=== PATIENT | female | born 1970 | race Caucasian/White ===

== ENCOUNTER → 2017-06-29 10:44 | Emergency (ER) | payer MEDICARE, BC ==
[2017-06-29 10:53] VITALS: BP 111/80
--- NOTE | 2017-06-29 12:23 | ED ---
Kunal Schroeder Nilda, scribed for Lina Boyer MD on 06/29/17 at 1200 . Complex/Multi-Sys Presentation - HPI Summary HPI Summary: This patient is a 47 year old F BIBA to [facility] with a chief complaint of bleeding from dialysis graft for the past two hours. Pt has been on dialysis for 9 years and had dialysis today. Pt states she had applied pressure to area for two hours and bleeding is starting to slow, but has not completely resolved. Symptoms aggravated by nothing. Pt states she is on Coumadin for a blood disorder and denies PMHx of PE. Pt notes she has Hx of "clotting issues." She states she was a recipient for kidney transplant years ago but it was unsuccessful. - History Of Current Complaint Chief Complaint: EDGeneral Time Seen by Provider: 06/29/17 11:00 Hx Obtained From: Patient Onset/Duration: Sudden Onset, Lasting Hours, Still Present Timing: Constant Severity Initially: Mild Aggravating Factor(s): nothing Alleviating Factor(s): compression Associated Signs And Symptoms: Positive: Other - bleeding from dialysis graft - Allergies/Home Medications Allergies/Adverse Reactions: Allergies Allergy/AdvReac Type Severity Reaction Status Date / Time Amoxicillin [From Augmentin] Allergy Intermediate Vomiting Verified 06/09/16 12: 19 Ceftriaxone [From Rocephin] Allergy Intermediate Vomiting Verified 06/09/16 12: 19 Clavulanic Acid Allergy Intermediate Vomiting Verified 06/09/16 12:19 [From Augmentin] Adhesive Tape [Plastic Tape] Allergy Mild Rash And Verified 06/09/16 12:19 Itching Iodinated Contrast Media Allergy Mild Rash Verified 06/09/16 12:19 [CONTRAST DYE] PMH/Surg Hx/FS Hx/Imm Hx Endocrine/Hematology History: Reports: Hx Anticoagulant Therapy - off coumadin x 2 weeks, Hx Anemia - dialysis pt Denies: Hx Blood Disorders, Hx Blood Transfusions, Hx Bone Marrow Disease, Hx Diabetes, Hx Systemic Lupus Erythematosus, Hx Sickle Cell Disease, Hx Thyroid Disease, Hx Unexplained Bleeding, Other Endocrine/Hematological Disorders Cardiovascular History: Denies: Hx Aneurysm, Hx Angina, Hx Angioplasty, Hx Auto Implanted Cardiovert Defib, Hx Cardiac Arrest, Hx Cardiomegaly, Hx Congenital Heart Disease, Hx Congestive Heart Failure, Hx Coronary Artery Disease, Hx Deep Vein Thrombosis, Hx Hypercholesterolemia, Hx Hypotension, Hx Hypertension, Hx Pacemaker/ICD, Hx Peripheral Vascular Disease, Hx Rheumatic Fever, Hx Syncope, Hx Valvular Heart Disease, Other Cardiovascular Problems/Disorders Respiratory History: Reports: Hx Chronic Bronchitis Denies: Hx Asthma, Hx Chronic Obstructive Pulmonary Disease (COPD), Hx Cystic Fibrosis, Hx Lung Cancer, Hx Pleural Effusion, Hx Pneumonia, Hx Pulmonary Edema, Hx Pulmonary Embolism, Hx Seasonal Allergies, Hx Sleep Apnea, Other Respiratory Problems/Disorders GI History: Denies: Hx Cirrhosis, Hx Crohn's Disease, Hx Diverticulosis, Hx Gall Bladder Disease, Hx Gastroesophageal Reflux Disease, Hx Gastrointestinal Bleed, Hx Hiatal Hernia, Hx Irritable Bowel, Hx Jaundice, Hx Obstructive Bowel, Hx Ileostomy, Hx Pyloric Stenosis, Hx Ulcer, Other GI Disorders History: Reports: Hx Chronic Renal Failure, Hx Dialysis, Hx Kidney Infection , Hx Renal Disease - end stage renal failure on HD Denies: Hx Acute Renal Failure, Hx Benign Prostatic Hyperplasia, Hx Kidney Stones Comment Only: Other Problems/Disorders - RIGHT KIDNEY TRANSPLANT Musculoskeletal History: Denies: Hx Arthritis, Hx Back Problems, Hx Bursitis, Hx Congenital Bone Abnormalities, Hx Fibromyalgia, Hx Gout, Hx Orthopedic Injury, Hx Osteoporosis, Hx Scoliosis, Hx Tendonitis, Other Musculoskeletal History Sensory History: Reports: Hx Contacts or Glasses - GLASSES TO READ, Hx Vision Problem - Reading Denies: Hx Cataracts, Hx Eye Injury, Hx Eye Prosthesis, Hx Glaucoma, Hx Macular Degeneration, Hx Deafness, Hx Hearing Aid, Hx Hearing Problem, Other Sensory Impairments Opthamlomology History: Reports: Hx Contacts or Glasses - GLASSES TO READ, Hx Vision Problem - Reading Denies: Hx Cataracts, Hx Eye Injury, Hx Eye Prosthesis, Hx Glaucoma, Hx Macular Degeneration, Other Sensory Impairments Neurological History: Denies: Hx Dementia, Hx Developmental Delay, Hx Headaches, Hx Migraine, Hx Seizures, Hx Spinal Cord Injury, Hx Transient Ischemic Attacks (TIA), Other Neuro Impairments/Disorders Psychiatric History: Denies: Hx Anxiety, Hx Attention Deficit Hyperactivity Disorder, Hx Eating Disorder, Hx Depression, Hx Panic Disorder, Hx Post Traumatic Stress Disorder, Hx Inpatient Treatment, Hx Community Mental Health Tx, Hx Schizophrenia, Hx Bipolar Disorder, Hx Suicide Attempt, Hx Substance Abuse, Other Psychiatric Issues/Disorders - Cancer History Hx Chemotherapy: No Hx Radiation Therapy: No - Surgical History Surgery Procedure, Year, and Place: Lap band 2010,, [place]. Kidney transplant 1993. Kidney Failure 2007-(TRANSPLANT FAILURE). Hernia repair X2. Ovarian cyst removed, LEFT 1990S, [place] Hx Anesthesia Reactions: No - Immunization History Date of Tetanus Vaccine: Unk Date of Influenza Vaccine: Fall 2013 Infectious Disease History: No Infectious Disease History: Denies: Hx Clostridium Difficile, Hx Hepatitis, Hx Human Immunodeficiency Virus (HIV), Hx of Known/Suspected MRSA, Hx Shingles, Hx Tuberculosis, Hx Known/ Suspected VRE, Hx Known/Suspected VRSA, History Other Infectious Disease, Traveled Outside the [place] in Last 30 Days - Family History Known Family History: Positive: Hypertension - Social History Alcohol Use: None Substance Use Type: Reports: None Smoking Status (MU): Never Smoked Tobacco Review of Systems Negative: Shortness Of Breath Positive: Other - bleeding from dialysis graft All Other Systems Reviewed And Are Negative: Yes Physical Exam - Summary Physical Exam Summary: General: Well appearing, no pain distress Skin: Warm, Skin Color Reflects Adequate Perfusion, Dry Eyes: EOMI, MAC ENT: Pharynx normal, TMs normal Neck: Supple, nontender Respiratory: CTA, breath sounds present, no rhonchi, no wheezes, no rales Cardiovascular: RRR, no murmur, no rub, no gallop Abdomen: Soft, nontender, Non-distended, no guarding, no rebound Bowel: Present Musculoskeletal: VETO, No edema, pt applying pressure to thigh Neuro: Sensory/motor intact, A&Ox3, CN intact 2-12 Psych: Affect/mood appropriate Triage Information Reviewed: Yes Vital Signs On Initial Exam: Initial Vitals Temp Pulse Resp BP Pulse Ox 98.5 F 82 18 111/80 100 06/29/17 10:51 06/29/17 10:51 06/29/17 10:51 06/29/17 10:51 06/29/17 10:51 Vital Signs Reviewed: Yes - Fern Coma Scale Coma Scale Total: 15 Diagnostics - Vital Signs Vital Signs Temp Pulse Resp BP Pulse Ox 06/29/17 11:00 86 100 06/29/17 10:57 82 99 06/29/17 10:51 98.5 F 82 18 111/80 100 - Laboratory Lab Statement: Any lab studies that have been ordered have been reviewed, and results considered in the medical decision making process. Re-Evaluation - Re-Evaluation First Eval Re-Evaluation Time: 12:12 Change: Improved Comment: Re-examination [12:16]: pt has a graft of left thigh that has thrill but no bleeding at graft site. Pt is agreeable for D/C. Complex Multi-Symp Course/Dx Course Of Treatment: 47 yo female with graft in left thigh that was bleeding for 2 hours per pt. On my first evaluation pt was gently putting pressure with gauze on thigh with no bleeding through the gauze, case was discussed with Dr. Roberts who suggested transfer to [place] if pt continued to bleed. Pt did not bleed and refused labs and wants to go home and knows to followup if symptoms return - Diagnoses Provider Diagnoses: Bleeding, End-stage renal disease - Physician Notifications Discussed Care Of Patient With: Marcus Roberts - Dialysis Center Time Discussed With Above Provider: 11:15 Instructed by Provider To: Other - discussed pt and course of treatment plan. Discharge - Discharge Plan Condition: Stable Disposition: HOME Patient Education Materials: End Stage Kidney Disease (ED), Bleeding Disorders (ED) Referrals: Kisha Kruse MD [Primary Care Provider] - 3 Days Additional Instructions: RETURN TO THE EMERGENCY DEPARTMENT FOR CHANGING OR WORSENING SYMPTOMS. The documentation as recorded by the Kunal montaño Nilda accurately reflects the service I personally performed and the decisions made by me, Lina Boyer MD.
== END | disposition home or self-care (01) ==
LOC: ED 10:44
DX: N18.6 End stage renal disease (principal); T82.838A Hemorrhage due to vascular prosthetic devices, implants and grafts, initial encounter; Z79.01 Long term (current) use of anticoagulants; Z99.2 Dependence on renal dialysis
CPT/HCPCS: 99281

== ENCOUNTER 2018-08-26 13:15 | Emergency (ER) | payer BC, MEDICARE ==
[2018-08-26 13:41] LABS: Urine Appearance Clear; Urine Bacteria Absent (Absent); Urine Bilirubin Negative (Negative); Urine Blood 1+ (Negative); Urine Color Straw; Urine Glucose Negative (Negative); Urine Ketones Negative (Negative); Urine Nitrite Negative (Negative); Urine Protein Negative (Negative); Urine Red Blood Cell Trace(0-2/hpf) (Absent); Urine Specific Gravity 1.004 (1.010-1.030); Urine Squamous Epithelial Cell Present (Absent); Urine Urobilinogen Negative (Negative); Urine White Blood Cell Trace(0-5/hpf) (Absent)
--- NOTE | 2018-08-26 16:42 | ED ---
GI/ HPI - HPI Summary HPI Summary: This patient is a 48 year old F presenting to [facility] with a chief complaint of urinary symptoms since last night. Patient reports pressure when urinating and frequent urination. Patient denies dysuria, abdominal pain, fever, CP, and SOB. Her archeology faculty member is Marcus Roberts MD. Patient had a kidney transplant September 2017 and is not diabetic. - History of Current Complaint Chief Complaint: EDUrogenitalProblems Time Seen by Provider: 08/26/18 16:22 Stated Complaint: POSSIBLE UTI Hx Obtained From: Patient Onset/Duration: Started Days Ago - Last night Timing: Constant Pain Intensity: 0 Associated Signs and Symptoms: Positive: Other: - Pressure when urinating and frequent urination. Denies SOB.. Negative: Fever, Dysuria, Abdominal Pain, Chest Pain - Allergy/Home Medications Allergies/Adverse Reactions: Allergies Allergy/AdvReac Type Severity Reaction Status Date / Time adhesive tape Allergy Rash And Verified 08/26/18 13:28 Itching amoxicillin [From Augmentin] Allergy Vomiting Verified 08/26/18 13:28 ceftriaxone [From Rocephin] Allergy Vomiting Verified 08/26/18 13:28 clavulanic acid Allergy Vomiting Verified 08/26/18 13:28 [From Augmentin] Iodinated Contrast- Oral and Allergy Rash Verified 08/26/18 13:28 IV Dye Home Medications: Home Medications Furosemide 80 mg PO DAILY 08/26/18 [History Confirmed 08/26/18] Mycophenolate Mofetil CAP(*) [Cellcept CAP(*)] 1,000 mg PO BID 08/26/18 [ History Confirmed 08/26/18] Tacrolimus [Tacrolimus 1 MG-] 1 mg PO BID 08/26/18 [History Confirmed 08/26/18] predniSONE [Prednisone 5 MG TAB] 5 mg PO DAILY 08/26/18 [History Confirmed 08/26] raNITIdine HCl [Gnp Acid Control 150 Maxi] 150 mg PO SEE INSTRUCTIONS 08/26/18 [ History Confirmed 08/26/18] PMH/Surg Hx/FS Hx/Imm Hx Endocrine/Hematology History: Reports: Hx Anticoagulant Therapy - off coumadin x 2 weeks, Hx Anemia - dialysis pt Denies: Hx Blood Disorders, Hx Blood Transfusions, Hx Bone Marrow Disease, Hx Diabetes, Hx Systemic Lupus Erythematosus, Hx Sickle Cell Disease, Hx Thyroid Disease, Hx Unexplained Bleeding, Other Endocrine/Hematological Disorders Cardiovascular History: Denies: Hx Aneurysm, Hx Angina, Hx Angioplasty, Hx Auto Implanted Cardiovert Defib, Hx Cardiac Arrest, Hx Cardiomegaly, Hx Congenital Heart Disease, Hx Congestive Heart Failure, Hx Coronary Artery Disease, Hx Deep Vein Thrombosis, Hx Hypercholesterolemia, Hx Hypotension, Hx Hypertension, Hx Pacemaker/ICD, Hx Peripheral Vascular Disease, Hx Rheumatic Fever, Hx Syncope, Hx Valvular Heart Disease, Other Cardiovascular Problems/Disorders Respiratory History: Reports: Hx Chronic Bronchitis Denies: Hx Asthma, Hx Chronic Obstructive Pulmonary Disease (COPD), Hx Cystic Fibrosis, Hx Lung Cancer, Hx Pleural Effusion, Hx Pneumonia, Hx Pulmonary Edema, Hx Pulmonary Embolism, Hx Seasonal Allergies, Hx Sleep Apnea, Other Respiratory Problems/Disorders GI History: Denies: Hx Cirrhosis, Hx Crohn's Disease, Hx Diverticulosis, Hx Gall Bladder Disease, Hx Gastroesophageal Reflux Disease, Hx Gastrointestinal Bleed, Hx Hiatal Hernia, Hx Irritable Bowel, Hx Jaundice, Hx Obstructive Bowel, Hx Ileostomy, Hx Pyloric Stenosis, Hx Ulcer, Other GI Disorders History: Reports: Hx Chronic Renal Failure, Hx Dialysis, Hx Kidney Infection , Hx Renal Disease - end stage renal failure on HD Denies: Hx Acute Renal Failure, Hx Benign Prostatic Hyperplasia, Hx Kidney Stones Comment Only: Other Problems/Disorders - RIGHT KIDNEY TRANSPLANT Musculoskeletal History: Denies: Hx Arthritis, Hx Back Problems, Hx Bursitis, Hx Congenital Bone Abnormalities, Hx Fibromyalgia, Hx Gout, Hx Orthopedic Injury, Hx Osteoporosis, Hx Scoliosis, Hx Tendonitis, Other Musculoskeletal History Sensory History: Reports: Hx Contacts or Glasses - GLASSES TO READ, Hx Vision Problem - Reading Denies: Hx Cataracts, Hx Eye Injury, Hx Eye Prosthesis, Hx Glaucoma, Hx Macular Degeneration, Hx Deafness, Hx Hearing Aid, Hx Hearing Problem, Other Sensory Impairments Opthamlomology History: Reports: Hx Contacts or Glasses - GLASSES TO READ, Hx Vision Problem - Reading Denies: Hx Cataracts, Hx Eye Injury, Hx Eye Prosthesis, Hx Glaucoma, Hx Macular Degeneration, Other Sensory Impairments Neurological History: Denies: Hx Dementia, Hx Developmental Delay, Hx Headaches, Hx Migraine, Hx Seizures, Hx Spinal Cord Injury, Hx Transient Ischemic Attacks (TIA), Other Neuro Impairments/Disorders Psychiatric History: Denies: Hx Anxiety, Hx Attention Deficit Hyperactivity Disorder, Hx Eating Disorder, Hx Depression, Hx Panic Disorder, Hx Post Traumatic Stress Disorder, Hx Inpatient Treatment, Hx Community Mental Health Tx, Hx Schizophrenia, Hx Bipolar Disorder, Hx Suicide Attempt, Hx Substance Abuse, Other Psychiatric Issues/Disorders - Cancer History Hx Chemotherapy: No Hx Radiation Therapy: No - Surgical History Surgery Procedure, Year, and Place: Lap band 2010,, [place]. Kidney transplant 1993. Kidney Failure 2007-(TRANSPLANT FAILURE). Hernia repair X2. Ovarian cyst removed, LEFT 1990S, [place] Hx Anesthesia Reactions: No - Immunization History Date of Tetanus Vaccine: Unk Date of Influenza Vaccine: Fall 2013 Infectious Disease History: No Infectious Disease History: Denies: Hx Clostridium Difficile, Hx Hepatitis, Hx Human Immunodeficiency Virus (HIV), Hx of Known/Suspected MRSA, Hx Shingles, Hx Tuberculosis, Hx Known/ Suspected VRE, Hx Known/Suspected VRSA, History Other Infectious Disease, Traveled Outside the [place] in Last 30 Days - Family History Known Family History: Positive: Hypertension - Social History Alcohol Use: None Substance Use Type: Reports: None Smoking Status (MU): Never Smoked Tobacco Review of Systems Negative: Chest Pain Negative: Shortness Of Breath Negative: Abdominal Pain Positive: frequency - Increased frequency, other - Pressure when urinating. Negative: dysuria All Other Systems Reviewed And Are Negative: Yes Physical Exam - Summary Physical Exam Summary: Appearance: Well appearing, no pain distress Skin: warm, dry, reflects adequate perfusion Head/face: normal Eyes: EOMI, MAC ENT: normal Neck: supple, non-tender Respiratory: CTA, breath sounds present Cardiovascular: RRR, pulses symmetrical Abdomen: non-tender, soft Musculoskeletal: normal, strength/ROM intact Neuro: A&Ox3 Triage Information Reviewed: Yes Vital Signs On Initial Exam: Initial Vitals Temp Pulse Resp BP Pulse Ox 97.7 F 84 19 171/91 99 08/26/18 13:20 08/26/18 13:20 08/26/18 13:20 08/26/18 13:20 08/26/18 13:20 Vital Signs Reviewed: Yes Diagnostics - Vital Signs Vital Signs Temp Pulse Resp BP Pulse Ox 08/26/18 13:20 97.7 F 84 19 171/91 99 - Laboratory Lab Results: Lab Results 08/26/18 Range/Units 13:22 Urine Color Straw Urine Appearance Clear Urine pH 7.0 (5-9) Ur Specific [place] 1.004 L (1.010-1.030) Urine Protein Negative (Negative) Urine Ketones Negative (Negative) Urine Blood 1+ A (Negative) Urine Nitrate Negative (Negative) Urine Bilirubin Negative (Negative) Urine Urobilinogen Negative (Negative) Ur Leukocyte Esterase Negative (Negative) Urine WBC (Auto) Trace(0-5/hpf) (Absent) Urine RBC (Auto) Trace(0-2/hpf) (Absent) Ur Squamous Epith Cells Present A (Absent) Urine Bacteria Absent (Absent) Urine Glucose Negative (Negative) Result Diagrams: 08/26/18 16:52 08/26/18 16:52 Lab Statement: Any lab studies that have been ordered have been reviewed, and results considered in the medical decision making process. GIGU Course/Dx - Course Course Of Treatment: This patient is a 48 year old F presenting to [facility] with a chief complaint of urinary symptoms since last night. Patient reports pressure when urinating and frequent urination. Patient denies dysuria, abdominal pain, fever, CP, and SOB. UA was obtained. Patient will be discharged with chronic renal failure. - Diagnoses Differential Diagnoses - Female: Urinary Tract Infection, Ureteral Calculi Provider Diagnoses: Chronic renal failure Discharge - Sign-Out/Discharge Documenting (check all that apply): Patient Departure - D/C - Discharge Plan Condition: Stable Disposition: HOME Patient Education Materials: Chronic Kidney Disease (ED) Referrals: Kisha Kruse MD [Primary Care Provider] - 3 Days Additional Instructions: Return to the ED if you have new or worsening symptoms. - Billing Disposition and Condition Condition: STABLE Disposition: Home - Attestation Statements Document Initiated by Carlos: Yes Documenting Scribe: Homer Palomino Provider For Whom Scribe is Documenting (Include Credential): Sai Scales MD Scribe Attestation: Homer Schroeder scribed for Sai Scales MD on 08/26/18 at 2133. Scribe Documentation Reviewed: Yes Provider Attestation: The documentation as recorded by the Homer montaño accurately reflects the service I personally performed and the decisions made by , Sai Scales MD Status of Scribe Document: Viewed
[2018-08-26 17:00] LABS: ABS Basophils 0.1 10^3/ul (0-0.2); ABS Eosinophils 0.1 10^3/ul (0-0.6); ABS Lymphocytes 0.4 10^3/ul (1.0-4.8); ABS Monocytes 0.3 10^3/ul (0-0.8); ABS Neutrophils 2.8 10^3/ul (1.5-7.7); ABS Nucleated RBC 0 10^3/ul; Eosinophil % 2.5 %; Hematocrit 37 % (35-47); Hemoglobin 12.1 g/dl (12.0-16.0); Lymphocyte % 11.4 %; Mean Corpuscular HGB Conc 33 g/dl (31-36); Mean Corpuscular Hemoglobin 29 pg (27-31); Mean Corpuscular Volume 88 fL (80-97); Mean Platelet Volume 9.2 fL (7.4-10.4); Nucleated Red Blood Cells % 0.1; Platelet Count 175 10^3/ul (150-450); Red Blood Count 4.21 10^6/ul (4.00-5.40); Red Cell Distribution Width 15 % (10.5-15); White Blood Count 3.7 10^3/ul (3.5-10.8)
[2018-08-26 17:09] LABS: Activated Partial Thrombo Time 34.5 seconds (26.0-36.3); INR 1.31 (0.77-1.02)
[2018-08-26 17:18] LABS: Albumin 4.6 g/dL (3.2-5.2); Albumin/Globulin Ratio 1.7 (1-3); BUN/Creatinine Ratio 30.2 (8-20); Calcium 8.4 mg/dL (8.6-10.3); EGFR African American 32.5 (>60); EGFR Non-African American 26.9 (>60); Globulin 2.7 g/dL (2-4); Total Bilirubin 1.5 mg/dL (0.2-1.0); Total Protein 7.3 g/dL (6.4-8.9)
[2018-08-26 17:22] LABS: Potassium 4.2 mmol/L (3.5-5.0)
[2018-08-26 17:24] LABS: HCG Pregnancy 8.51 mIU/mL
[2018-08-26 18:03] VITALS: BP 172/94
== END 2018-08-26 18:02 | disposition home or self-care (01) ==
LOC: ED 13:15
DX: N18.9 Chronic kidney disease, unspecified (principal); Z79.01 Long term (current) use of anticoagulants; Z88.0 Allergy status to penicillin
CPT/HCPCS: 36415; 80053; 81003; 81015; 84702; 85025; 85610; 85730; 87086; 99282

== ENCOUNTER 2019-07-20 10:22 | Emergency (ER) | payer BC, MEDICARE ==
[2019-07-20 10:45] VITALS: BP 151/82
--- NOTE | 2019-07-20 10:48 | UC ---
Skin Complaint HPI - HPI Summary HPI Summary: 49 yo female presents with RIGHT breast complaint. She tells me that for many months she has felt her right breast is larger than her left. She has been seeing a general surgeon in [place], Dr. Canchola, for this. She tells me that yesterday she had a breast ultrasound and Dr. Canchola's office called her today and told her to be evaluated for a possible infection of her breast. Pt denies fevers, redness or warmth to breast, no injury. She states that her breast feels more hard over the last several weeks to few months. - History of Current Complaint Chief Complaint: UCGeneralIllness Time Seen by Provider: 07/20/19 10:26 Stated Complaint: MIGHT HAVE INFECTION IN BREAST Hx Obtained From: Patient Onset/Duration: Gradual Onset Onset Severity: Mild Current Severity: Mild Pain Intensity: 1 - Allergy/Home Medications Allergies/Adverse Reactions: Allergies Allergy/AdvReac Type Severity Reaction Status Date / Time adhesive tape Allergy Rash And Verified 07/20/19 10:35 Itching amoxicillin [From Augmentin] Allergy Vomiting Verified 07/20/19 10:35 ceftriaxone [From Rocephin] Allergy Vomiting Verified 07/20/19 10:35 clavulanic acid Allergy Vomiting Verified 07/20/19 10:35 [From Augmentin] Iodinated Contrast Media Allergy Rash Verified 07/20/19 10:35 [Iodinated Contrast- Oral and IV Dye] PMH/Surg Hx/FS Hx/Imm Hx - Additional Past Medical History Additional PMH: ESRD APL Other History Of: Anticoagulant Therapy - off coumadin x 2 weeks - Surgical History Surgical History: Yes Surgery Procedure, Year, and Place: Lap band 2010,, [place]. Kidney transplant 1993. Kidney Failure 2007-(TRANSPLANT FAILURE). Hernia repair X2. Ovarian cyst removed, LEFT , - Family History Known Family History: Positive: Hypertension - Social History Alcohol Use: None Substance Use Type: None Smoking Status (MU): Never Smoked Tobacco - Immunization History Most Recent Influenza Vaccination: This past fall Most Recent Tetanus Shot: Unknown Most Recent Pneumonia Vaccination: Last fall Review of Systems All Other Systems Reviewed And Are Negative: No Constitutional: Positive: Negative Skin: Positive: Other - Right breast complaint Respiratory: Positive: Negative Cardiovascular: Positive: Negative Neurological: Positive: Negative Psychological: Positive: Negative Physical Exam - Summary Physical Exam Summary: GENERAL: NAD. WDWN. No pain distress. SKIN: RIGHT BREAST: Moderate firmness around the areola worst at the 7-8o'clock positions with dimpling and ridges. Inverted nipple. Enlarged compared to left breast. No discharge, warmth, erythema, or ecchymosis on the breast. No abscess appreciated. Underneath both breasts there is mild raw-appearing erythematous skin. No right axillary lymph nodes appreciated. CHEST: No accessory muscle use. Breathing comfortably and in no distress. CV: Pulses intact. Cap refill <2seconds NEURO: Alert. PSYCH: Age appropriate behavior. Exam assisted by Rehana AL. Triage Information Reviewed: Yes Vital Signs: Initial Vital Signs Temp 99.4 F 07/20/19 10:36 Pulse 64 07/20/19 10:36 Resp 16 07/20/19 10:36 BP 151/82 07/20/19 10:36 Pulse Ox 100 07/20/19 10:36 Vital Signs Reviewed: Yes Course/Dx - Course Course Of Treatment: US report from yesterday: 1. THERE IS SKIN ERYTHEMA AND THICKENING AND BREAST EDEMA WITHIN THE RIGHT BREAST SUGGESTIVE OF EITHER A BREAST INFECTION OR POSSIBLY AN INFLAMMATORY BREAST CARCINOMA. RECOMMOND CLINICAL CORRELATION. 2. DIFFICULT TO EVALUATE STUDY WITH NUMEROUS CYSTIC AND SOLID NODULES. RECOMMEND AN MRI OF THE BREASTS FOR FURTHER EVALUATION WITH FOLLOW-UP BIOPSY OF ANY SUSPICIOUS LESIONS. I called and spoke to Dr. Canchola. He states that he referred pt to today over concerns for infection of the breast and if there is no infection apparent on my exam, to have pt f/u next week in his office for likely skin biopsy. Afebrile and no erythema, warmth, or abscess appreciated on exam. I do not favor an infectious etiology at this time. There is some mild yeast underneath both breasts, for which I will rx nystatin powder. Strongly encouraged pt to call Dr. Canchola's office today to schedule an appt for next week. She voiced understanding and agrees with the plan. - Diagnoses Provider Diagnosis: Breast swelling, Yeast infection Discharge ED - Sign-Out/Discharge Documenting (check all that apply): Patient Departure All imaging exams completed and their final reports reviewed: No Studies - Discharge Plan Condition: Stable Disposition: HOME Prescriptions: Nystatin TOP POWDER* 1 applic TOPICAL BID #1 btl Patient Education Materials: Yeast Infection (ED) Referrals: Kisha Kruse MD [Primary Care Provider] - Additional Instructions: If you develop a fever, shortness of breath, chest pain, new or worsening symptoms - please call your PCP or go to the ED immediately. Your blood pressure was high at todays visit. Please see your primary provider within 4 weeks for recheck and re-evaluation. Your exam did not show any indication of infection today. Please call Dr. Canchola today and set up an appointment for next week for further testing. - Billing Disposition and Condition Condition: STABLE Disposition: Home
== END 2019-07-20 11:10 | disposition home or self-care (01) ==
LOC: UCEAST 10:22
DX: N63.10 Unspecified lump in the right breast, unspecified quadrant (principal); B37.89 Other sites of candidiasis; Z91.09 Other allergy status, other than to drugs and biological substances; Z88.0 Allergy status to penicillin; Z88.1 Allergy status to other antibiotic agents; Z88.8 Allergy status to other drugs, medicaments and biological substances; Z91.041 Radiographic dye allergy status; Z85.6 Personal history of leukemia
CPT/HCPCS: 99212; G0463

== ENCOUNTER 2023-07-08 15:26 | Inpatient (IN) ==
[2023-07-08] MEDS ORDERED: NS 0.9% 1000 ml BAG 1,000 ML IV ONE (17:13)
[2023-07-08] MEDS ORDERED: Vancomycin 1,500 MG in NS 0.9% 250 ml 250 ML IVPB ONE (17:27)
[2023-07-08] MEDS ORDERED: DOXYcycline 100 MG in NS 0.9% 250 ml 250 ML IVPB ONE ×2 (17:28→17:33)
[2023-07-08 17:42] LABS: PCO2 Arterial 38 mmHg (35-45)
[2023-07-08 17:45] LABS: ABS Eosinophils 0.1 10^3/uL (0.0-0.5); ABS Lymphocytes 0.7 10^3/uL (1.0-4.8); ABS Monocytes 0.6 10^3/uL (0.0-0.9); ABS Neutrophils 8.1 10^3/uL (1.5-7.6); ABS Nucleated RBC 0.01 10^3/ul; Eosinophil % 1.4 %; Hematocrit 32.3 % (35-45); Hemoglobin 10.8 g/dL (11.5-14.3); Lymphocyte % 7.8 %; Mean Corpuscular Hemoglobin 30.2 pg (27-33); Mean Corpuscular Hgb Conc 33.5 g/dL (31-36); Mean Corpuscular Volume 90.2 fL (80-97); Nucleated Red Blood Cells % 0.1 %/100WBC (0.0-0.8); Platelet Count 144 10^3/uL (150-450); Red Blood Count 3.58 10^6/uL (3.63-4.92); Red Cell Distribution Width 17.1 % (12-17); White Blood Count 9.5 10^3/uL (3.8-11.8)
[2023-07-08 17:47] LABS: PO2 Arterial 49 mmHg (80-100)
[2023-07-08 18:11] LABS: Albumin/Globulin Ratio 1.1 (1-3); Creatinine, Serum 3.95 mg/dL (0.51-0.95); Globulin 2.7 g/dL (2-4); Magnesium 1.8 mg/dL (1.9-2.7); Potassium 4.5 mmol/L (3.5-5.0); Total Protein 5.7 g/dL (6.4-8.9)
[2023-07-08 18:25] LABS: INR 19.54 (0.83-1.13)
[2023-07-08 19:08] LABS: INR 20.42 (0.83-1.13)
[2023-07-08 19:09] LABS: Activated Partial Thrombo Time 109.2 seconds (26.0-38.0)
[2023-07-08] MEDS ORDERED: Phytonadione IV (Adult) 10 MG in NS 0.9% 50 ML 50 ML IV ONE (20:12)
[2023-07-08] MEDS ORDERED: Morphine 2 MG/ML SYRINGE IV PRN (21:02)
[2023-07-08] MEDS: Sodium Bicarb 650 mg (ANTACID) TAB PO SCH (21:54)
[2023-07-09 00:51] LABS: Urine Appearance Turbid; Urine Bilirubin Negative (Negative); Urine Blood 1+ (Negative); Urine Color Amber; Urine Glucose Negative (Negative); Urine Ketones Trace (Negative); Urine Nitrite Negative (Negative); Urine Protein 2+(100 mg/dL) (Negative); Urine Specific Gravity 1.021 (1.002-1.030); Urine Urobilinogen Negative (Negative)
[2023-07-09 01:04] LABS: Urine Benzodiazepine Screen None Detected (None Detect); Urine Cannabinoids Screen None Detected (None Detect); Urine Opiates Screen None Detected (None Detect)
[2023-07-09 01:14] LABS: Urine Bacteria Absent (Absent); Urine Red Blood Cell 3+(>10/hpf) (Absent); Urine Squamous Epithelial Cell Present (Absent); Urine White Blood Cell 3+(>20/hpf) (Absent)
[2023-07-09 04:49] LABS: ABS Eosinophils 0.1 10^3/uL (0.0-0.5); ABS Lymphocytes 0.9 10^3/uL (1.0-4.8); ABS Monocytes 0.5 10^3/uL (0.0-0.9); ABS Nucleated RBC 0.01 10^3/ul; Eosinophil % 1.5 %; Hematocrit 29.5 % (35-45); Hemoglobin 10.1 g/dL (11.5-14.3); INR 2.41 (0.83-1.13); Lymphocyte % 12.1 %; Mean Corpuscular Hemoglobin 30.8 pg (27-33); Mean Corpuscular Hgb Conc 34.2 g/dL (31-36); Mean Platelet Volume 8.7 fL (7.5-11.2); Nucleated Red Blood Cells % 0.1 %/100WBC (0.0-0.8); Platelet Count 138 10^3/uL (150-450); Red Blood Count 3.28 10^6/uL (3.63-4.92); Red Cell Distribution Width 17.1 % (12-17); White Blood Count 7.5 10^3/uL (3.8-11.8)
[2023-07-09 05:08] LABS: Albumin 2.8 g/dL (3.2-5.2); Albumin/Globulin Ratio 1.1 (1-3); Calcium 7.8 mg/dL (8.6-10.3); Creatinine, Serum 4.03 mg/dL (0.51-0.95); Globulin 2.5 g/dL (2-4); Magnesium 1.8 mg/dL (1.9-2.7); Potassium 4.3 mmol/L (3.5-5.0); Total Bilirubin 1.9 mg/dL (0.2-1.0); Total Protein 5.3 g/dL (6.4-8.9); eGFR CKD-EPI 12.7 (>60)
[2023-07-09] MEDS ORDERED: Magnesium Sulfate IV 1GM/100ML 1 GM/100 ML BAG IV ONE (05:15)
[2023-07-09 08:56] LABS: INR 1.86 (0.83-1.13)
[2023-07-09] MEDS ORDERED: Pantoprazole VIAL 40 MG VIAL IV SCH (09:00)
[2023-07-09] MEDS: Nystatin TOP POWDER 15 GM BTL TOPICAL SCH ×3 (09:27→21:15)
[2023-07-09] MEDS: Sodium Bicarb 650 mg (ANTACID) TAB PO SCH ×2 (09:28→21:20)
[2023-07-09] MEDS ORDERED: Vancomycin per Pharmacy 1 EA NOTE FOLLOW UP SCH (10:00)
[2023-07-09] MEDS ORDERED: Zosyn per Pharmacy NOTE FOLLOW UP SCH (10:00)
[2023-07-09 10:07] LABS: C Reactive Protein 268.58 mg/L (<8.01)
[2023-07-09] MEDS: NS 0.9% 1000 ml BAG 1,000 ML IV SCH ×2 (10:11→21:41)
[2023-07-09] MEDS ORDERED: Piperacillin/Tazobac 3.375 BAG 3.375 GM/100 ML BAG IV ONE (11:00)
[2023-07-09] MEDS ORDERED: Cholecalciferol (VIT D3) 1,000 unit TAB PO SCH (13:00)
[2023-07-09] MEDS ORDERED: CRANBERRY EXTRACT PO SCH (13:00)
[2023-07-09] MEDS ORDERED: CALCIUM CARBONATE VITAMIN D3 PO SCH (13:00)
[2023-07-09] MEDS ORDERED: [UNRECOGNIZED DRUG - OTHER] PO SCH (13:00)
[2023-07-09] MEDS ORDERED: ASCORBIC ACID PO SCH (13:00)
[2023-07-09] MEDS: ZOSYN 3.375 GM Q12H per EXTENDED INFUSION IV SCH (16:07)
[2023-07-09 19:16] LABS: C Reactive Protein 254.18 mg/L (<8.01); Calcium 7.5 mg/dL (8.6-10.3); Creatinine, Serum 3.95 mg/dL (0.51-0.95); Phosphorus 4.1 mg/dL (2.5-5.0); Potassium 4.6 mmol/L (3.5-5.0)
[2023-07-09 19:29] LABS: Hepatitis B Surface Antigen Nonreactive (Nonreactive)
[2023-07-09 19:46] LABS: Hepatitis B Surface Ab Not Immune (Immune); Hepatitis C Antibody Negative (Negative)
[2023-07-09 22:50] LABS: HIV 4th Generation Nonreactive (Nonreactive)
[2023-07-10] MEDS: ZOSYN 3.375 GM Q12H per EXTENDED INFUSION IV SCH ×2 (03:52→16:52)
[2023-07-10] MEDS ORDERED: Vancomycin Random Level NOTE FOLLOW UP ONE (06:00)
[2023-07-10 06:17] LABS: ABS Lymphocytes 0.4 10^3/uL (1.0-4.8); ABS Monocytes 0.1 10^3/uL (0.0-0.9); ABS Neutrophils 5.4 10^3/uL (1.5-7.6); ABS Nucleated RBC 0.01 10^3/ul; Hematocrit 31.5 % (35-45); Hemoglobin 10.5 g/dL (11.5-14.3); Lymphocyte % 6.7 %; Mean Corpuscular Hemoglobin 30.6 pg (27-33); Mean Corpuscular Hgb Conc 33.5 g/dL (31-36); Mean Corpuscular Volume 91.5 fL (80-97); Mean Platelet Volume 8.7 fL (7.5-11.2); Nucleated Red Blood Cells % 0.1 %/100WBC (0.0-0.8); Platelet Count 140 10^3/uL (150-450); Red Blood Count 3.44 10^6/uL (3.63-4.92); Red Cell Distribution Width 17.4 % (12-17); White Blood Count 5.9 10^3/uL (3.8-11.8)
[2023-07-10 06:36] LABS: Albumin 2.9 g/dL (3.2-5.2); Calcium 7.7 mg/dL (8.6-10.3); Creatinine, Serum 3.9 mg/dL (0.51-0.95); Globulin 2.9 g/dL (2-4); Magnesium 2.1 mg/dL (1.9-2.7); Phosphorus 4.8 mg/dL (2.5-5.0); Potassium 5.1 mmol/L (3.5-5.0); Total Bilirubin 1.3 mg/dL (0.2-1.0); Total Protein 5.8 g/dL (6.4-8.9); eGFR CKD-EPI 13.2 (>60)
[2023-07-10] MEDS: NS 0.9% 1000 ml BAG 1,000 ML IV SCH ×2 (07:01→17:20)
[2023-07-10 07:15] LABS: INR 1.3 (0.83-1.13)
[2023-07-10] MEDS: Cholecalciferol (VIT D3) 1,000 unit TAB PO SCH (08:18)
[2023-07-10] MEDS: Sodium Bicarb 650 mg (ANTACID) TAB PO SCH ×2 (08:19→20:56)
[2023-07-10] MEDS ORDERED: Vancomycin 1000 MG in NS 0.9% 250 ML IVPB ONE (10:30)
[2023-07-10] MEDS: Nystatin TOP POWDER 15 GM BTL TOPICAL SCH ×3 (11:48→20:56)
[2023-07-10] MEDS: Warfarin DAILY REMINDER **NOTE FOLLOW UP SCH (17:55)
[2023-07-11] MEDS: ZOSYN 3.375 GM Q12H per EXTENDED INFUSION IV SCH ×2 (03:17→16:34)
[2023-07-11 05:11] LABS: ABS Lymphocytes 0.3 10^3/uL (1.0-4.8); ABS Monocytes 0.1 10^3/uL (0.0-0.9); ABS Nucleated RBC 0.01 10^3/ul; Eosinophil % 0.1 %; Hematocrit 29.3 % (35-45); Hemoglobin 9.8 g/dL (11.5-14.3); Lymphocyte % 6.2 %; Mean Corpuscular Hemoglobin 30.6 pg (27-33); Mean Corpuscular Hgb Conc 33.6 g/dL (31-36); Mean Platelet Volume 8.5 fL (7.5-11.2); Nucleated Red Blood Cells % 0.2 %/100WBC (0.0-0.8); Platelet Count 174 10^3/uL (150-450); Red Blood Count 3.22 10^6/uL (3.63-4.92); Red Cell Distribution Width 17.1 % (12-17); White Blood Count 5.5 10^3/uL (3.8-11.8)
[2023-07-11 05:27] LABS: Albumin 2.9 g/dL (3.2-5.2); Albumin/Globulin Ratio 1.1 (1-3); Calcium 7.4 mg/dL (8.6-10.3); Creatinine, Serum 4.03 mg/dL (0.51-0.95); Globulin 2.6 g/dL (2-4); Magnesium 2.1 mg/dL (1.9-2.7); Phosphorus 4.7 mg/dL (2.5-5.0); Total Bilirubin 0.6 mg/dL (0.2-1.0); Total Protein 5.5 g/dL (6.4-8.9); Vancomycin Random 16.3 mcg/mL; eGFR CKD-EPI 12.7 (>60)
[2023-07-11] MEDS ORDERED: Vancomycin Random Level NOTE FOLLOW UP ONE (06:00)
[2023-07-11 06:09] LABS: INR 1.74 (0.83-1.13)
[2023-07-11] MEDS: Cholecalciferol (VIT D3) 1,000 unit TAB PO SCH (09:39)
[2023-07-11] MEDS: Sodium Bicarb 650 mg (ANTACID) TAB PO SCH ×2 (09:40→21:20)
[2023-07-11] MEDS: Nystatin TOP POWDER 15 GM BTL TOPICAL SCH ×3 (09:42→21:20)
[2023-07-11] MEDS ORDERED: Sulfur Hexaflouride MICROSPHR 25 MG VIAL ONE (10:39)
[2023-07-11] MEDS ORDERED: Dextrose 50% Syringe 50 ml 25 GM/50 ML SYRINGE IV PUSH PRN (13:28)
[2023-07-11] MEDS ORDERED: Vancomycin 1000 MG in NS 0.9% 250 ML IVPB ONE (14:30)
[2023-07-11] MEDS: Warfarin DAILY REMINDER **NOTE FOLLOW UP SCH (17:30)
[2023-07-12] MEDS: ZOSYN 3.375 GM Q12H per EXTENDED INFUSION IV SCH ×2 (03:11→15:17)
[2023-07-12] MEDS ORDERED: Vancomycin Random Level NOTE FOLLOW UP ONE (06:00)
[2023-07-12 07:26] LABS: Creatinine, Serum 3.96 mg/dL (0.51-0.95)
[2023-07-12] MEDS: Cholecalciferol (VIT D3) 1,000 unit TAB PO SCH (09:17)
[2023-07-12] MEDS: Sodium Bicarb 650 mg (ANTACID) TAB PO SCH ×2 (09:18→22:47)
[2023-07-12 10:30] LABS: Calcium 7.4 mg/dL (8.6-10.3); Potassium 5.3 mmol/L (3.5-5.0)
[2023-07-12 11:47] LABS: Complement C3 93 mg/dL (75 - 175)
[2023-07-12] MEDS: Nystatin TOP POWDER 15 GM BTL TOPICAL SCH ×3 (11:57→22:42)
[2023-07-12 13:46] LABS: Kappa Free Light Chain 3.81 mg/dL; Lambda Free Light Chain, S 3.94 mg/dL
[2023-07-12] MEDS: Bumetanide IV 0.25 MG/ML 4 ml VIAL (1 mg) IV SLOW PU SCH (22:51)
[2023-07-13] MEDS: ZOSYN 3.375 GM Q12H per EXTENDED INFUSION IV SCH ×2 (03:48→16:34)
[2023-07-13] MEDS ORDERED: Warfarin per PHARMACY **NOTE FOLLOW UP SCH (08:00)
[2023-07-13] MEDS: Warfarin DAILY REMINDER **NOTE FOLLOW UP SCH ×2 (08:13→17:27)
[2023-07-13 09:35] LABS: ABS Lymphocytes 0.5 10^3/uL (1.0-4.8); ABS Monocytes 0.2 10^3/uL (0.0-0.9); ABS Neutrophils 4.6 10^3/uL (1.5-7.6); ABS Nucleated RBC 0.01 10^3/ul; Eosinophil % 0.2 %; Hematocrit 30.7 % (35-45); Hemoglobin 10.2 g/dL (11.5-14.3); Lymphocyte % 8.6 %; Mean Corpuscular Hemoglobin 30.8 pg (27-33); Mean Corpuscular Hgb Conc 33.2 g/dL (31-36); Mean Corpuscular Volume 92.7 fL (80-97); Mean Platelet Volume 8.1 fL (7.5-11.2); Nucleated Red Blood Cells % 0.2 %/100WBC (0.0-0.8); Platelet Count 260 10^3/uL (150-450); Red Blood Count 3.31 10^6/uL (3.63-4.92); Red Cell Distribution Width 17.5 % (12-17); White Blood Count 5.2 10^3/uL (3.8-11.8)
[2023-07-13 09:40] LABS: INR 2.64 (0.83-1.13)
[2023-07-13] MEDS: Bumetanide IV 0.25 MG/ML 4 ml VIAL (1 mg) IV SLOW PU SCH (09:42)
[2023-07-13] MEDS: Sodium Bicarb 650 mg (ANTACID) TAB PO SCH ×2 (09:43→21:45)
[2023-07-13] MEDS: Cholecalciferol (VIT D3) 1,000 unit TAB PO SCH (09:43)
[2023-07-13] MEDS: Nystatin TOP POWDER 15 GM BTL TOPICAL SCH ×3 (09:44→21:44)
[2023-07-13 09:50] LABS: Calcium 7.4 mg/dL (8.6-10.3); Creatinine, Serum 3.75 mg/dL (0.51-0.95); Potassium 5.4 mmol/L (3.5-5.0); eGFR CKD-EPI 13.9 (>60)
[2023-07-13 15:28] LABS: PLA2R, Immunofluorescence, S Negative (Negative)
[2023-07-13 21:22] LABS: Albumin 2.3 g/dL (3.4-4.7); Flag, M-protein Isotype Negative (Negative); Total Protein 5.1 g/dL (6.3 - 7.9)
[2023-07-14] MEDS: ZOSYN 3.375 GM Q12H per EXTENDED INFUSION IV SCH ×2 (03:33→15:10)
[2023-07-14] MEDS: Cholecalciferol (VIT D3) 1,000 unit TAB PO SCH (09:37)
[2023-07-14] MEDS: Sodium Bicarb 650 mg (ANTACID) TAB PO SCH ×2 (09:38→22:17)
[2023-07-14] MEDS: Nystatin TOP POWDER 15 GM BTL TOPICAL SCH ×3 (09:41→22:19)
[2023-07-14] MEDS: Bumetanide IV 0.25 MG/ML 4 ml VIAL (1 mg) IV SLOW PU SCH (10:00)
[2023-07-14 11:35] LABS: ABS Lymphocytes 0.6 10^3/uL (1.0-4.8); ABS Monocytes 0.2 10^3/uL (0.0-0.9); ABS Neutrophils 5.5 10^3/uL (1.5-7.6); ABS Nucleated RBC 0.01 10^3/ul; Eosinophil % 0.1 %; Hematocrit 30.6 % (35-45); Hemoglobin 10.1 g/dL (11.5-14.3); Lymphocyte % 9.7 %; Mean Corpuscular Hemoglobin 30.4 pg (27-33); Mean Corpuscular Hgb Conc 32.9 g/dL (31-36); Mean Corpuscular Volume 92.5 fL (80-97); Mean Platelet Volume 8.3 fL (7.5-11.2); Nucleated Red Blood Cells % 0.1 %/100WBC (0.0-0.8); Platelet Count 307 10^3/uL (150-450); Red Blood Count 3.31 10^6/uL (3.63-4.92); Red Cell Distribution Width 17.4 % (12-17); White Blood Count 6.4 10^3/uL (3.8-11.8)
[2023-07-14 11:47] LABS: INR 2.75 (0.83-1.13)
[2023-07-14 16:52] LABS: Anion Gap 8 mmol/L (2-16); Blood Urea Nitrogen 85 mg/dL (6-24); CO2 Carbon Dioxide 22 mmol/L (22-32); Calcium 7.4 mg/dL (8.6-10.3); Chloride 104 mmol/L (101-111); Creatinine, Serum 3.43 mg/dL (0.51-0.95); Glucose 180 mg/dL (70-100); Sodium 134 mmol/L (135-145); eGFR CKD-EPI 15.4 (>60)
[2023-07-14] MEDS: Warfarin DAILY REMINDER **NOTE FOLLOW UP SCH (17:15)
[2023-07-15] MEDS: Nystatin TOP POWDER 15 GM BTL TOPICAL SCH ×3 (11:23→22:41)
[2023-07-15] MEDS: Sodium Bicarb 650 mg (ANTACID) TAB PO SCH ×2 (11:24→22:40)
[2023-07-15] MEDS: Bumetanide IV 0.25 MG/ML 4 ml VIAL (1 mg) IV SLOW PU SCH (11:24)
[2023-07-15] MEDS: Cholecalciferol (VIT D3) 1,000 unit TAB PO SCH (11:25)
[2023-07-15 16:14] LABS: C Reactive Protein 21.96 mg/L (<8.01); Calcium 7.6 mg/dL (8.6-10.3); Creatinine, Serum 3.18 mg/dL (0.51-0.95); Potassium 5.1 mmol/L (3.5-5.0); eGFR CKD-EPI 16.9 (>60)
[2023-07-15 16:44] LABS: INR 2.37 (0.83-1.13)
[2023-07-15 16:45] LABS: ABS Lymphocytes 0.3 10^3/uL (1.0-4.8); ABS Monocytes 0.2 10^3/uL (0.0-0.9); ABS Neutrophils 5.7 10^3/uL (1.5-7.6); ABS Nucleated RBC 0.01 10^3/ul; Eosinophil % 0.1 %; Hemoglobin 9.9 g/dL (11.5-14.3); Lymphocyte % 5.2 %; Mean Corpuscular Hemoglobin 29.8 pg (27-33); Mean Corpuscular Hgb Conc 31.9 g/dL (31-36); Mean Corpuscular Volume 93.6 fL (80-97); Mean Platelet Volume 7.9 fL (7.5-11.2); Nucleated Red Blood Cells % 0.2 %/100WBC (0.0-0.8); Platelet Count 327 10^3/uL (150-450); Red Blood Count 3.31 10^6/uL (3.63-4.92); Red Cell Distribution Width 17.4 % (12-17); White Blood Count 6.2 10^3/uL (3.8-11.8)
[2023-07-15 17:02] LABS: Albumin 3.4 g/dL (3.2-5.2); Albumin/Globulin Ratio 1.6 (1-3); Calcium 7.3 mg/dL (8.6-10.3); Creatinine, Serum 3.13 mg/dL (0.51-0.95); Globulin 2.1 g/dL (2-4); Potassium 5.3 mmol/L (3.5-5.0); Total Bilirubin 0.5 mg/dL (0.2-1.0); Total Protein 5.5 g/dL (6.4-8.9); eGFR CKD-EPI 17.2 (>60)
[2023-07-15] MEDS: Warfarin DAILY REMINDER **NOTE FOLLOW UP SCH (17:15)
[2023-07-16] MEDS: Bumetanide IV 0.25 MG/ML 4 ml VIAL (1 mg) IV SLOW PU SCH (09:24)
[2023-07-16] MEDS: Cholecalciferol (VIT D3) 1,000 unit TAB PO SCH (09:25)
[2023-07-16] MEDS: Sodium Bicarb 650 mg (ANTACID) TAB PO SCH ×2 (09:25→21:46)
[2023-07-16] MEDS: Nystatin TOP POWDER 15 GM BTL TOPICAL SCH ×3 (12:21→21:46)
[2023-07-16 16:26] LABS: C-ANCA Negative (Negative); P-ANCA Negative (Negative)
[2023-07-16] MEDS: Warfarin DAILY REMINDER **NOTE FOLLOW UP SCH (17:19)
[2023-07-17 07:52] LABS: ABS Lymphocytes 0.5 10^3/uL (1.0-4.8); ABS Monocytes 0.2 10^3/uL (0.0-0.9); ABS Nucleated RBC 0.01 10^3/ul; Eosinophil % 0.2 %; Hematocrit 29.2 % (35-45); Hemoglobin 9.7 g/dL (11.5-14.3); Lymphocyte % 11.4 %; Mean Corpuscular Hemoglobin 30.7 pg (27-33); Mean Corpuscular Hgb Conc 33.1 g/dL (31-36); Mean Corpuscular Volume 92.9 fL (80-97); Mean Platelet Volume 8.4 fL (7.5-11.2); Nucleated Red Blood Cells % 0.2 %/100WBC (0.0-0.8); Platelet Count 256 10^3/uL (150-450); Red Blood Count 3.14 10^6/uL (3.63-4.92); Red Cell Distribution Width 17.6 % (12-17); White Blood Count 4.8 10^3/uL (3.8-11.8)
[2023-07-17 07:57] LABS: INR 2.38 (0.83-1.13)
[2023-07-17 08:04] LABS: Calcium 7.3 mg/dL (8.6-10.3); Creatinine, Serum 2.24 mg/dL (0.51-0.95); Potassium 5.8 mmol/L (3.5-5.0); eGFR CKD-EPI 25.8 (>60)
[2023-07-17] MEDS: Sodium Bicarb 650 mg (ANTACID) TAB PO SCH ×2 (08:07→21:49)
[2023-07-17] MEDS: Cholecalciferol (VIT D3) 1,000 unit TAB PO SCH (08:09)
[2023-07-17] MEDS: Nystatin TOP POWDER 15 GM BTL TOPICAL SCH ×3 (10:37→21:48)
[2023-07-17] MEDS ORDERED: Sodium Polystyrene ORAL.SUSP 15 GM/60 ML BTL PO ONE (11:00)
[2023-07-17] MEDS: Warfarin DAILY REMINDER **NOTE FOLLOW UP SCH (17:05)
[2023-07-17] MEDS: Psyllium PAK PO SCH (17:05)
[2023-07-18 06:38] LABS: ABS Lymphocytes 0.5 10^3/uL (1.0-4.8); ABS Monocytes 0.4 10^3/uL (0.0-0.9); ABS Neutrophils 6.4 10^3/uL (1.5-7.6); Eosinophil % 0.2 %; Hematocrit 30.7 % (35-45); Hemoglobin 9.9 g/dL (11.5-14.3); Lymphocyte % 6.7 %; Mean Corpuscular Hemoglobin 30.3 pg (27-33); Mean Corpuscular Hgb Conc 32.3 g/dL (31-36); Mean Corpuscular Volume 93.6 fL (80-97); Mean Platelet Volume 8.7 fL (7.5-11.2); Platelet Count 219 10^3/uL (150-450); Red Blood Count 3.28 10^6/uL (3.63-4.92); Red Cell Distribution Width 17.9 % (12-17); White Blood Count 7.4 10^3/uL (3.8-11.8)
[2023-07-18 06:46] LABS: INR 2.29 (0.83-1.13)
[2023-07-18 08:02] LABS: Calcium 7.5 mg/dL (8.6-10.3); Creatinine, Serum 1.95 mg/dL (0.51-0.95); Magnesium 1.9 mg/dL (1.9-2.7); Potassium 4.3 mmol/L (3.5-5.0); eGFR CKD-EPI 30.4 (>60)
[2023-07-18] MEDS: Cholecalciferol (VIT D3) 1,000 unit TAB PO SCH (08:17)
[2023-07-18] MEDS: Sodium Bicarb 650 mg (ANTACID) TAB PO SCH (08:18)
[2023-07-18] MEDS: Psyllium PAK PO SCH (08:21)
[2023-07-18 10:39] VITALS: BP 109/67
[2023-07-18] MEDS: Nystatin TOP POWDER 15 GM BTL TOPICAL SCH ×2 (12:20→15:21)
== END 2023-07-18 15:35 | disposition home or self-care (01) | DRG 602 ==
LOC: ED 15:26 → SUATTDRO 18:17 → EDHOLD 18:17 → ICU 18:35 → MED 07-10 11:36
PROVIDERS: ADMIT Internal Medicine; ATTEND Internal Medicine